=== PATIENT | female | born 1980 | race Caucasian/White ===

== ENCOUNTER 2018-12-15 17:08 | Emergency (ER) | payer MEDICAID ==
[~2018-12-15] VITALS: Ht 175.3 cm; Wt 86.2 kg
[2018-12-15 17:12] VITALS: Ht 175.3 cm; Wt 86.2 kg
[2018-12-15 19:07] VITALS: BP 128/80
== END 2018-12-15 19:07 | disposition home or self-care (01) ==
LOC: ED 17:08
DX: S09.8XXA Other specified injuries of head, initial encounter (principal); S40.012A Contusion of left shoulder, initial encounter; V43.52XA Car driver injured in collision with other type car in traffic accident, initial encounter; Y93.I9 Activity, other involving external motion; Y92.488 Other paved roadways as the place of occurrence of the external cause; Y99.8 Other external cause status